=== PATIENT | male | born 1950 | race Caucasian/White ===

== ENCOUNTER → 2020-09-28 08:28 | Outpatient (BNVA) | payer MEDICARE, SELFPAY | PROVIDERS: PCP Family Medicine; Visit Provider Urology | DX: Z12.5 Encounter for screening for malignant neoplasm of prostate (principal); C67.9 Malignant neoplasm of bladder, unspecified; N39.9 Disorder of urinary system, unspecified | CPT/HCPCS: 81003; G0103 ==

== ENCOUNTER 2022-05-04 14:21 | Outpatient (CLI) | payer MEDICARE, SELFPAY ==
--- NOTE | 2022-05-04 14:15 | US_ITS ---
WS: [id number] RENAL ULTRASOUND HISTORY: CYST ON KIDNEY COMPARISON: Prior CT 03/23/2022 and 01/14/2021 TECHNIQUE: 2-D and color Doppler imaging of the kidney submitted. Right kidney: 8.3 cm x 5.5 cm x 3.3 cm. Low normal size kidney. Mild increased echogenicity. No hydronephrosis. Exophytic cyst from the mid k idney measures 4.7 x 4.6 x 3.9 cm. No solid component. Left kidney: 13.4 cm x 6.1 cm x 6.7 cm. Normal size kidney. No hydronephrosis or mass. Aorta: Normal. Urinary Bladder: Normal distention. US/US renal BI* [id number] IMPRESSION: 1. Low normal size RIGHT kidney. 2. Stable exophytic cyst from the mid RIGHT kidney measures 4.7 x 4.6 x 3.9 cm . Cyst was previously described on prior examinations dating back to 01/14/2021.
== END 2022-05-04 14:22 | disposition home or self-care (01) ==
LOC: RAD 14:27
PROVIDERS: PCP Family Medicine; Visit Provider Urology
DX: N28.1 Cyst of kidney, acquired (principal); C67.9 Malignant neoplasm of bladder, unspecified; N40.1 Benign prostatic hyperplasia with lower urinary tract symptoms; N13.8 Other obstructive and reflux uropathy
CPT/HCPCS: 76770; 81003; 99213

== ENCOUNTER → 2022-06-22 15:04 | Outpatient (BNVA) | payer MEDICARE, SELFPAY | PROVIDERS: PCP Family Medicine; Visit Provider Urology | DX: C67.9 Malignant neoplasm of bladder, unspecified (principal); N40.1 Benign prostatic hyperplasia with lower urinary tract symptoms; N13.8 Other obstructive and reflux uropathy; N28.1 Cyst of kidney, acquired; N50.819 Testicular pain, unspecified | CPT/HCPCS: 51741; 51798; 81003; 99213 ==

== ENCOUNTER → 2022-08-16 15:19 | Outpatient (BNVA) | payer MEDICARE, SELFPAY | PROVIDERS: PCP Family Medicine; Visit Provider Urology | DX: N40.1 Benign prostatic hyperplasia with lower urinary tract symptoms (principal); N13.8 Other obstructive and reflux uropathy; C67.9 Malignant neoplasm of bladder, unspecified; N28.1 Cyst of kidney, acquired; N50.819 Testicular pain, unspecified | CPT/HCPCS: 52000; 99213 ==